=== PATIENT | male | born 1985 | race Caucasian/White ===

== ENCOUNTER 2020-10-18 10:08 | Emergency (ER) | payer BC ==
[~2020-10-18] VITALS: Ht 175.3 cm; Wt 77.3 kg
[~2020-10-18 10:08] MED LIST: AMOXICILLIN 25250 MG PO; CLEOCIN PO; LORTAB 5/500 501 TAB PO
[2020-10-18] MEDS ORDERED: FLEXERIL 1010 MG/TAB PO (11:38)
[2020-10-18 11:52] VITALS: BP 132/94; PULSE 100; TEMP 98
== END 2020-10-18 11:52 | disposition home or self-care (01) ==
LOC: COL.ER 10:08
DX: S16.1XXA Strain of muscle, fascia and tendon at neck level, initial encounter (principal); F17.210 Nicotine dependence, cigarettes, uncomplicated; X58.XXXA Exposure to other specified factors, initial encounter
CPT/HCPCS: Q9967

== ENCOUNTER 2020-10-21 10:49 | Emergency (ER) | payer BC ==
[~2020-10-21] VITALS: Ht 175.3 cm; Wt 72.7 kg
[~2020-10-21 10:49] MED LIST changes: +FLEXERIL 1010 MG/TAB PO
[2020-10-21 10:59] VITALS: TEMP 96.7
[2020-10-21] MEDS ORDERED: NORCO 325 MG-51 TAB PO (11:28)
[2020-10-21 12:12] LABS: BASO # 0.1 (0.0-0.2); BASO % 0.6 % (0.0-2.0); EOS # 0.3 (0.0-0.7); EOS % 2.4 % (0-4.0); GRAN # 7.6 (1.4-6.5); GRAN % 70.7 % (42.2-75.2); HEMOGLOBIN 14.9 g/dl (13.5-18.0); LYMPH # 2.1 (1.2-3.4); LYMPH % 19.1 % (20.0-51.0); MEAN CELL VOLUME 95 fl (80.0-100.0); MEAN CORPUSCULAR HEMOGLOBIN 32 pg (27.0-31.0); MEAN CORPUSCULAR HGB CONC 34 g/dl (33.0-37.0); MEAN PLATELET VOLUME 9.1 fl (7.4-10.4); MONO # 0.7 (0.1-0.6); MONO % 6.7 % (1.7-9.3); PLATELET COUNT 264 K/mm3 (130-400); RED BLOOD COUNT 4.62 M/mm3 (4.20-5.60); REDCELL DISTRIBUTION WIDTH-CV 11.9 % (11.5-14.5)
[2020-10-21 12:20] LABS: COLLECTION METHOD CLEAN CATCH
[2020-10-21 12:25] LABS: MUCOUS Present /lpf; PH 6 (5-8); SQUAMOUS EPITHELIAL None Seen /hpf; URINE APPEARANCE Clear; URINE BACTERIA None Seen /hpf; URINE BILIRUBIN Negative (NEGATIVE); URINE BLOOD Negative (NEGATIVE); URINE COLOR Yellow; URINE GLUCOSE Negative (NEGATIVE); URINE KETONE Trace (NEGATIVE); URINE LEUKOCYTE ESTERASE Negative (NEGATIVE); URINE NITRATE Negative (NEGATIVE); URINE PROTEIN(semi-quant) Negative (NEGATIVE); URINE RBC 0-2 /hpf; URINE UROBILINOGEN Negative (NEGATIVE)
[2020-10-21 12:49] LABS: ALANINE AMINOTRANSFERASE 104 U/L (4-49); ALBUMIN 4.1 gm/dL (3.5-5.0); ALKALINE PHOSPHATASE 94 U/L (50-136); ANION GAP 5 mmol/L (7-16); AST,SGOT 66 U/L (15-37); BILIRUBIN,TOTAL < 0.1 mg/dL (0.0-1.0); BLOOD UREA NITROGEN 12 mg/dL (9-20); CALCIUM 9.1 mg/dL (8.4-10.2); CARBON DIOXIDE 31 mmol/L (22-30); CHLORIDE 99 mmol/L (98-107); CREATININE, serum 0.47 (0.66-1.25); GLUCOSE 102 mg/dL (74-106); POTASSIUM 4.3 mmol/L (3.4-5.0); SODIUM 135 mmol/L (137-145); TOTAL PROTEIN 7.7 gm/dL (6.4-8.2)
[2020-10-21 12:49] LABS: TRICYCLIC ANTIDEPRESS URINE NEGATIVE
[2020-10-21 12:50] LABS: ALCOHOL(ethanol),MEDICAL < 10 mg/dL
[2020-10-21 13:39] VITALS: BP 124/84; PULSE 100
== END 2020-10-21 13:40 | disposition home or self-care (01) ==
LOC: COL.ER 10:49
PROVIDERS: Physician Assistant
DX: S16.1XXA Strain of muscle, fascia and tendon at neck level, initial encounter (principal); F15.10 Other stimulant abuse, uncomplicated; S40.012A Contusion of left shoulder, initial encounter; S40.011A Contusion of right shoulder, initial encounter; K03.81 Cracked tooth; M79.602 Pain in left arm; F17.210 Nicotine dependence, cigarettes, uncomplicated; Z79.891 Long term (current) use of opiate analgesic; Z79.899 Other long term (current) drug therapy; W22.8XXA Striking against or struck by other objects, initial encounter